=== PATIENT | male | born 1980 | race African-American/Black ===

== ENCOUNTER 2019-05-16 11:24 | Emergency (ER) | payer OTHER ==
[~2019-05-16] VITALS: Ht 190.5 cm; Wt 104.3 kg
[~2019-05-16 11:24] MED LIST: BACTRIM DS TAB1 EACH PO; DECONGESTANT NA15 ML NS; DOXYCYCLINE 10100 MG PO; ECONAZOLE 1% CR30 G1 TP; ECONAZOLE TP; HYDROCODONE-APA1 TA1 PO; HYDROXYZINE HCL10 M1 PO; IBUPROFEN 600600 M1 PO; NAPROSYN500 MG PO; NOHOMEMEDICATIONS; NORCO 5-325 TA1 EACH PO; OMEPRAZOLE40 MG PO; PHENERGAN-CODE120 ML PO; PREDNISONE 20 M20 MG PO; PROTONIX40 MG PO; TRIAMCINOLONE A15 G1 TP; VALIUM5 MG PO
[2019-05-16 11:46] LABS: ABSOLUTE NEUTROPHILS 3.4 thou/uL (1.4-8.2); EOSINOPHILS 3.3 % (0.0-3.0); HEMATOCRIT 43.4 % (42.0-52.0); HEMOGLOBIN 14.6 gm/dL (14.0-18.0); LYMPHOCYTES 34.7 % (24.0-44.0); MCH 30.4 pg (26.0-34.0); MCHC 33.5 g/dL (28.0-37.0); MCV 90.6 fL (80.0-100.0); MONOCYTES 7.3 % (1.0-8.0); PLATELET COUNT 256 thou/uL (150-400); POLYS 53.7 % (36.0-66.0); RBC 4.79 mil/uL (4.50-6.00); RDW 13.4 % (10.5-14.5); WBC 6.3 thou/uL (4.0-11.0)
[2019-05-16 12:04] LABS: ANION GAP 8 mmol/L (7-16); BUN 10 mg/dL (7-18); CALCIUM 9.5 mg/dL (8.5-10.1); CHLORIDE 103 mmol/L (98-107); CO2 28 mmol/L (21-32); CREATININE 1.1 mg/dL (0.7-1.3); GLUCOSE 114 mg/dL (74-106); POTASSIUM 3.8 mmol/L (3.5-5.1); SODIUM 139 mmol/L (136-145)
[2019-05-16 12:15] LABS: ALBUMIN 4.2 g/dL (3.4-5.0); SGOT 20 U/L (15-37); SGPT 36 U/L (30-65); TOTAL BILIRUBIN 1.6 mg/dL (<0.1-1.0); TOTAL PROTEIN 7.8 g/dL (6.4-8.2); TROPONIN-I <0.06 ng/mL (<0.06)
[2019-05-16] MEDS ORDERED: ULTRAM 50MG TAB50 MG PO (14:39)
[2019-05-16] MEDS ORDERED: MEDROLDOSEPACK PO (14:39)
[2019-05-16 14:43] VITALS: BP 109/70
--- NOTE | 2019-05-17 07:53 | EKG ---
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
--- NOTE | 2019-05-17 07:54 | EKG ---
[place] [address] [address] [place] [address] ELECTROCARDIOGRAM REPORT Name: KHADIJAH PATEL Room #: [facility]#: [id number] Admission: 05/16/19 Attend Phys: Discharge: 05/16/19 Date of : 76 Report #: [id number] THIS REPORT FOR: //name// [facility] ED Test Date: 2019-05-16 Test Time: 12:53:54 Pat Name: KHADIJAH PATEL Department: Room: Gender: [employer]: RUBEN : 1980 Requested By: Buddy Colby Order Number: [id number] MD: Stefano Feliz Measurements Intervals [place] Rate: 54 P: 42 VA: 170 QRS: 56 QRSD: 86 T: 28 QT: 395 QTc: 375 Interpretive Statements Sinus bradycardia Otherwise normal tracing Compared to ECG 03/28/2016 11:16:58 No significant changes Electronically Signed On 05-17-2019 7:54:30 CDT by Stefano Feliz [email or web address] <ELECTRONICALLY SIGNED> By: Stefano Feliz MD, FACC 05/17/19 [id number] [id number] [email or web address] Feliz MD, FACC /EPI
== END 2019-05-16 16:12 | disposition home or self-care (01) ==
LOC: ER 11:24
PROVIDERS: Physician Assistant
DX: R07.9 Chest pain, unspecified (principal); M06.9 Rheumatoid arthritis, unspecified; J45.909 Unspecified asthma, uncomplicated; K21.9 Gastro-esophageal reflux disease without esophagitis; E11.9 Type 2 diabetes mellitus without complications; G47.30 Sleep apnea, unspecified; F17.210 Nicotine dependence, cigarettes, uncomplicated; Z88.8 Allergy status to other drugs, medicaments and biological substances